=== PATIENT | female | born 1995 | race Caucasian/White ===

== ENCOUNTER 2020-04-20 17:22 | Outpatient (CLI) | payer OTHER | END 2020-04-20 17:23 | disposition home or self-care (01) | LOC: COV 17:22 | PROVIDERS: ATTEND Family Medicine | DX: Z20.828 Contact with and (suspected) exposure to other viral communicable diseases (principal) ==

== ENCOUNTER 2020-06-18 21:18 | Outpatient (CLI) | payer OTHER | END 2020-06-18 21:19 | disposition home or self-care (01) | LOC: COV 21:18 | PROVIDERS: ATTEND Family Medicine | DX: Z20.822 Contact with and (suspected) exposure to COVID-19 (principal) ==